=== PATIENT | female | born 1965 | race Caucasian/White ===

== ENCOUNTER 2017-07-28 02:10 | Emergency (ER) | payer BC ==
[~2017-07-28] VITALS: Ht 149.9 cm; Wt 106.8 kg
[~2017-07-28 02:10] MED LIST: MOTRIN600 MG PO
[2017-07-28 02:55] LABS: HEMATOCRIT 42.1 % (36.0-46.0); MCHC 33.3 G/DL (30.0-36.0); MCV 90.1 FL (83-99); MEAN PLAT.VOLUME 10.2 uM^3 (9.5-12.4); PLATELET COUNT 260 K/uL (156-360); RBC DIS.WIDTH-CV 12.6 % (11.8-14.6); RBC DIS.WIDTH-SD 41.6 % (39-53); RED BLOOD COUNT 4.67 M/uL (3.80-5.20); WHITE BLOOD COUNT 9.7 K/uL (4.1-10.2)
[2017-07-28 03:08] LABS: CHLORIDE 109 mEq/L (99-109); POTASSIUM 4.2 mEq/L (3.7-5.4); SODIUM 140 mEq/L (136-147)
[2017-07-28 03:09] LABS: GLUCOSE 127 mg/dL (70-99)
[2017-07-28 03:11] LABS: ANION GAP 8 MEQ/L (2-14)
[2017-07-28 03:13] LABS: GFR ESTIMATE (CALCULATED) > 59 mL/min/
[2017-07-28 03:13] LABS: ADD MIUA? YES; BILIRUBIN NEGATIVE; BLOOD NEGATIVE; COLOR YELLOW ((YELLOW)); GLUCOSE (STRIP) NEGATIVE; KETONES NEGATIVE; LEUKOCYTES NEGATIVE; NITRITE NEGATIVE; PROTEIN (STRIP) NEGATIVE; SPECIFIC GRAVITY 1.028 (1.000-1.030)
[2017-07-28 03:14] LABS: UREA NITROGEN (BUN) 14 mg/dL (9-23)
[2017-07-28 03:23] LABS: BACTERIA RARE /HPF; CALCIUM OXALATE CRYSTALS 4+ /HPF; EPITHELIAL CELLS 2+ /HPF; MUCUS TRACE /LPF; RED BLOOD CELLS 0-5 /HPF (0-5); UCUL ADDED? NO; WHITE BLOOD CELLS 0-5 /HPF (0-5)
[2017-07-28 03:52] LABS: QUANTITATIVE HCG < 4.0 MIU/ML
[2017-07-28] MEDS ORDERED: ZOFRAN4 MG PO (04:11)
[2017-07-28] MEDS ORDERED: MOTRIN600 MG PO (04:11)
[2017-07-28] MEDS ORDERED: PERCOCET 5/31 TABLET PO (04:11)
[2017-07-28 04:19] VITALS: BP 180/98
== END 2017-07-28 04:31 | disposition home or self-care (01) ==
LOC: EME 02:10
DX: R10.9 Unspecified abdominal pain (principal); Z87.442 Personal history of urinary calculi; E78.5 Hyperlipidemia, unspecified; I10 Essential (primary) hypertension; K21.9 Gastro-esophageal reflux disease without esophagitis; Z87.891 Personal history of nicotine dependence
CPT/HCPCS: 74176; 80048; 81003; 84702; 85027; 99281; 99284; J1885

== ENCOUNTER → 2017-09-12 | Outpatient (CLI) | payer BC ==
[~2017-09-12] MED LIST changes: +PERCOCET 5/31 TABLET PO; +ZOFRAN4 MG PO
== END | disposition home or self-care (01) ==
LOC: CDC 14:00
DX: Z01.810 Encounter for preprocedural cardiovascular examination (principal)
CPT/HCPCS: 93000

== ENCOUNTER 2017-11-23 05:37 | Day surgery (SDC) | payer BC ==
[~2017-11-23] VITALS: Ht 149.9 cm; Wt 106.6 kg
[~2017-11-23 05:37] MED LIST changes: +ATORVASTATIN CA40 MG PO; +ERGOCALCIF50000 UNIT PO; +LISINOPRIL20 MG PO; +OMEPRAZOLE40 M1 PO; +OXYBUTYNIN CHLO10 MG PO; +TYLENOL ARTHRI650 MG PO
[2017-11-23 05:53] VITALS: BP 132/66
[2017-11-23] MEDS ORDERED: IBUPROFEN800 MG PO (10:17)
[2017-11-23] MEDS ORDERED: ENDOCET 5-3251 EACH PO (10:17)
[2017-11-23 11:48] VITALS: BP 141/101
[2017-11-23 12:19] VITALS: BP 146/84
== END 2017-11-23 12:20 | disposition home or self-care (01) ==
LOC: SDC 05:37
DX: N83.02 Follicular cyst of left ovary (principal); N83.292 Other ovarian cyst, left side; N83.291 Other ovarian cyst, right side; Z78.0 Asymptomatic menopausal state; K66.0 Peritoneal adhesions (postprocedural) (postinfection); E78.5 Hyperlipidemia, unspecified; I10 Essential (primary) hypertension; K21.9 Gastro-esophageal reflux disease without esophagitis; E66.9 Obesity, unspecified; Z68.42 Body mass index [BMI] 45.0-49.9, adult
CPT/HCPCS: 88305; J0330; J1100; J1885; J2250; J2405; J3010; Q0175; S0020